=== PATIENT | male | born 1985 | race Caucasian/White ===

== ENCOUNTER 2019-04-14 19:11 | Emergency (ER) | payer SELFPAY ==
[~2019-04-14] VITALS: Ht 177.8 cm; Wt 136.4 kg
[~2019-04-14 19:11] MED LIST: AMOXICILLIN500 MG PO; NO HOME MEDS
[2019-04-14 21:10] LABS: HEMATOCRIT 43.1 % (39.0-50.0); HEMOGLOBIN 14.7 g/dl (14.0-18.0); IMMATURE GRANULOCYTES 0.2 % (0.0-5.0); MEAN CELL VOLUME 91.5 fL CALC (80.0-100.0); MEAN CORPUSCULAR HGB 31.2 pG CALC (26.0-32.0); MEAN CORPUSCULAR HGB CONC 34.1 g/L CALC (32.0-36.0); NEUT# 6.6 thou/uL (1.82-7.42); RED BLOOD COUNT 4.71 mill/uL (4.70-6.10); RED CELL DISTRI WIDTH 12.4 % (11.5-15.5)
[2019-04-14 21:33] LABS: D-DIMER 0.29 mg/L (0.19-0.60); INTERNATIONAL NORMALIZED RATIO 0.9 RATIO (0.7-1.3); PROTHROMBIN TIME 9.6 SECONDS (9.0-12.5)
[2019-04-14 21:34] LABS: ALKALINE PHOSPHATASE 68 u/l (38-126); AMYLASE 32 u/l (30-110); BILIRUBIN, TOTAL 0.8 mg/dL (0.0-1.4); BUN 10 mg/dL (9-20); CHLORIDE 101 mmol/l (95-108); LIPASE 88 u/l (23-300); POTASSIUM 4.2 mmol/l (3.5-5.1); SGOT/AST 43 u/l (17-59); TOTAL PROTEIN 7.1 g/dL (6.3-8.2)
[2019-04-14 21:35] LABS: ANION GAP 12 (6-22 (CALC)); BUN/CREATININE RATIO 20 (12-20 (CALC)); CARBON DIOXIDE 25 mmol/l (22-30); CREATININE 0.5 mg/dL (0.7-1.3); GFR > 60 ML/MIN (>=60 (CALC)); GFR FOR AFR.AMER. > 60 ML/MIN (>=60 (CALC)); SODIUM 134 mmol/l (137-146)
[2019-04-14 21:45] LABS: MYOGLOBIN 40 ng/mL (0 - 121)
[2019-04-14] MEDS ORDERED: OMEPRAZOLE20 M2 PO (22:14)
[2019-04-14] MEDS ORDERED: METFORMIN HCL1000 M1 PO (22:14)
[2019-04-14 22:30] VITALS: BP 131/78
== END 2019-04-14 22:30 | disposition home or self-care (01) | DRG 392 ==
LOC: ED 19:11
PROVIDERS: Family Medicine
DX: K21.9 Gastro-esophageal reflux disease without esophagitis (principal); E11.65 Type 2 diabetes mellitus with hyperglycemia; E66.01 Morbid (severe) obesity due to excess calories; R10.13 Epigastric pain; R06.02 Shortness of breath; R11.2 Nausea with vomiting, unspecified

== ENCOUNTER 2024-04-15 12:41 | Emergency (ER) | payer SELFPAY ==
[~2024-04-15] VITALS: Ht 177.8 cm; Wt 127.0 kg
[2024-04-15] VITALS (12 sets, daily range): BP systolic 119–149; BP diastolic 77–95
[~2024-04-15 12:41] MED LIST changes: +METFORMIN HCL1000 M1 PO; +OMEPRAZOLE20 M2 PO
[2024-04-15] MEDS ORDERED: SODIUM CHLORIDE 0.9% 1,000 ML IV ONE (13:00)
[2024-04-15] MEDS ORDERED: VANCOMYCIN HCL 1 GM in SODIUM CHLORIDE 0.9% 250 ML IV ONE (13:00)
[2024-04-15] MEDS ORDERED: cefTRIAXone SODIUM 2 GM in SODIUM CHLORIDE 0.9% 100 ML IV ONE (13:00)
[2024-04-15 13:30] LABS: BASO% 0.4 % (0-3); EOS% 0.9 % (0-8); HEMATOCRIT 42.1 % (39.0-50.0); HEMOGLOBIN 14.2 g/dl (14.0-18.0); IMMATURE GRANULOCYTES 0.1 % (0.0-5.0); LYMPH% 13.8 % (15-41); MEAN CELL VOLUME 92.5 fL CALC (80.0-100.0); MEAN CORPUSCULAR HGB 31.2 pG CALC (26.0-32.0); MEAN CORPUSCULAR HGB CONC 33.7 g/dL CAL (32.0-36.0); MONO% 5.8 % (2-13); NEUT# 11.77 thou/uL (1.82-7.42); RED BLOOD COUNT 4.55 mill/uL (4.70-6.10); RED CELL DISTRI WIDTH 12.4 % (11.5-15.5)
[2024-04-15 13:38] LABS: ALBUMIN 4.2 g/dL (3.2-5.0); BILIRUBIN, TOTAL 0.7 mg/dL (0.2-1.3); CREATININE 0.5 mg/dL (0.7-1.3); TOTAL PROTEIN 7.9 g/dL (6.3-8.2)
[2024-04-15] MEDS ORDERED: BACTRIM DS1 TAB PO (15:53)
[2024-04-15] MEDS ORDERED: CEPHALEXIN500 M1 PO (15:53)
[2024-04-15] MEDS ORDERED: METFORMIN HCL500 M1 PO (15:59)
== END 2024-04-15 16:15 | disposition home or self-care (01) | DRG 603 ==
LOC: ED 12:41
PROVIDERS: Family Medicine
DX: L03.116 Cellulitis of left lower limb (principal); E11.9 Type 2 diabetes mellitus without complications; E66.9 Obesity, unspecified